=== PATIENT | female | born 1955 | race Caucasian/White ===

== ENCOUNTER 2019-12-04 13:54 | Emergency (ER) | payer MEDICARE, OTHER ==
[~2019-12-04] VITALS: Ht 165.1 cm; Wt 45.4 kg
[2019-12-04 14:08] VITALS: BP 121/61
--- NOTE | 2019-12-04 14:20 | NUR ---
Patient discharged to home in stable condition. Written and verbal after care instructions given. Patient verbalizes understanding of instruction.
== END 2019-12-04 14:21 | disposition home or self-care (01) ==
LOC: ER 13:54
DX: H61.23 Impacted cerumen, bilateral (principal); Z60.2 Problems related to living alone